=== PATIENT | male | born 1980 | race Caucasian/White ===

== ENCOUNTER 2022-03-26 14:28 | Emergency (ER) | payer OTHER, SELFPAY ==
[2022-03-26 14:45] VITALS: BP 153/82; PULSE 82; RESP 18; TEMP 36.9; O2SAT 100
[2022-03-26] MEDS: PANTOPRAZOLE 40 MG TABLET PO (16:36)
[2022-03-26] MEDS: BELLADONNA ALK/PHENOB ELIX 10 ML, MAG HYDROX/ALUMINUM HYD/SIMETH 30 ML, LIDOCAINE HCL 2... PO (16:37)
--- NOTE | 2022-03-26 16:44 | ED.GENADULT ---
HPI - General Adult General Chief complaint: Skin/Abscess/Foreign Body Stated complaint: swallowing issues Time Seen by Provider: 03/26/22 15:30 History of Present Illness HPI narrative: 41-year-old male with history of possible esophageal stricture with increasing difficulty swallowing presents to the emergency department for concern of a food bolus. Patient states he was eating shrimp earlier and felt that it got stuck. At this time patient is handling his own secretions and is able to swallow without issues. Patient does complain of some esophageal pressure but appears to be in no distress. Related Data Allergies Allergy/AdvReac Type Severity Reaction Status Date / Time codeine Allergy Unknown Muscle Verified 03/26/22 14:41 Spasms Review of Systems Review of Systems: CONSTITUTIONAL: Denies fever, chills, or sweats. EYES: Denies visual changes, redness, or discharge. ENT: Denies rhinorrhea, congestion, sore throat, or otalgia. CARDIOVASCULAR: Denies chest pain, palpitations, or edema. RESPIRATORY: Denies cough or dyspnea. GASTROINTESTINAL: See HPI GENITOURINARY: Denies dysuria or hematuria. SKIN: Denies rash or itching. MUSCULOSKELETAL: Denies back pain, joint pain, or myalgia. NEUROLOGIC: Denies headache, numbness, or weakness. [facility] Past Medical History Medical History Encounter for monitoring testosterone replacement therapy H/O herpes labialis Hypertension Lipoma Surgical History Surgical History H/O knee surgery ACL/knee reconstruction- Right 1995 ACL/knee reconstruction- Left 2000 History of ankle surgery Left: 1997 History of repair of ACL Family History Family History Mother Asthma Diabetes mellitus Father Family history of bipolar disorder Alcoholism Depression Grandparent Hypertension Depression Skin cancer Social History Social History Smoking status: Never smoker Second hand tobacco smoke exposure: No Alcohol intake: current Alcohol use details: through Wednesday. Substance use: never Substance use type: does not use Gender identity (if verbalized by the patient): Male Exam Narrative: APPEARANCE: Well appearing, no pain, no distress, well-nourished. HEAD: normocephalic, atraumatic. EYES: PERRLA/EOMI, conjunctivae clear. NOSE: Normal no drainage THROAT: Pharynx clear, no exudate. NECK: Supple. No adenopathy, no masses. RESPIRATORY: Airway patent, respirations nonlabored. Clear to auscultation bilaterally, no rales, rhonchi, wheezing. CARDIOVASCULAR: Regular rate and rhythm without murmurs rubs or gallops. ABDOMINAL: Soft, nontender, nondistended, normal bowel sounds MUSCULOSKELETAL: Moves all extremities. Strength/ROM intact, No edema, No calf tenderness. NEURO: Alert. Cranial nerves II through XII intact. Grossly intact SKIN: Warm, dry. Normal Color Course Course Emergency Course: Patient was able to drink a glass of water without issue. case was discussed with Dr. Dagoberto Bonilla and GI was comfortable with the plan for discharge and close follow-up. Patient will be started on a PPI and was recommended to follow a soft or clear diet. Patient was updated on the plan for follow-up. All questions and concerns were addressed. Patient was well-appearing and handling his secretions at time of discharge. Vital Signs Vital signs: Vital Signs Temperature 98.4 F 03/26/22 14:45 Pulse Rate 82 03/26/22 14:45 Respiratory Rate 18 03/26/22 14:45 Blood Pressure 153/82 H 03/26/22 14:45 Pulse Oximetry 100 03/26/22 14:45 Temperature 98.4 F 03/26/22 14:45 Pulse Rate 82 03/26/22 14:45 Respiratory Rate 18 03/26/22 14:45 Blood Pressure 153/82 H 03/26/22 14:45 Pulse Oximetry 100 03/26/22 14:45 Medical De
--- NOTE | 2022-03-26 17:13 | PC.NURSE ---
Reports decrease in symptoms with GI cocktail.
== END 2022-03-26 17:15 | disposition home or self-care (01) ==
PROVIDERS: Emergency Provider Emergency Medicine; PCP Internal Medicine
DX: K22.9 Disease of esophagus, unspecified (principal); I10 Essential (primary) hypertension
CPT/HCPCS: 99283; A9270

== ENCOUNTER 2022-04-06 00:22 | Day surgery (SDC) | payer OTHER, SELFPAY ==
[2022-04-02 08:23] VITALS: BMI 28.5
[2022-04-06 08:38] VITALS: BP 151/64; PULSE 92; RESP 18; TEMP 36.6; O2SAT 100; BMI 27.9
[2022-04-06] MEDS: LACTATED RINGERS 1,000 ML 150 ML IV CONT (08:58)
--- NOTE | 2022-04-06 09:11 | WPDHPUPDATE1 ---
History and Physical Update Update Date/Time: 04/06/22 09:11 History and Physical has been reviewed, including an updated exam of the patient. There are NO changes in the patient's condition. Risks, benefits, and alternatives have been discussed and questions answered. Patient agrees to proceed with procedure.
--- NOTE | 2022-04-06 09:13 | WPDANESEPPF ---
Anes - Initial Pre Proc Eval Procedure: Operation Date: 04/06/22 09:30 Proposed Procedures p Esophagogastroduodenoscopy - Dieudonne Brooke MD Date/Time: 04/06/22 09:13 Surgeon: Dieudonne Brooke MD Pre Op Diagnosis: dysphagia Patient Data Age: 41 Gender: M Height: 1.75 m Weight: 85.8 kg Last Vital Signs Temp 97.8 F 04/06/22 08:38 Pulse 92 04/06/22 08:38 Resp 18 04/06/22 08:38 BP 151/64 H 04/06/22 08:38 Pulse Ox 100 04/06/22 08:38 O2 Del Method Room Air 04/06/22 08:38 Allergies Allergy/AdvReac Type Severity Reaction Status Date / Time codeine Allergy Unknown Muscle Verified 04/06/22 08:44 Spasms Home Medications Medication Instructions Recorded Confirmed Type testosterone cypionate 200 mg/mL 150 mg (0.75 mL) IM WEEKLY #10 mL 09/02/21 04/06/22 Rx intramuscular oil tadalafil 10 mg tablet (Cialis) 10 mg PO DAILY PRN sexual activity 11/21/21 04/06/22 Rx #30 tabs needle (disp) 18 G 18 gauge x 1 #100 ea 02/06/22 04/06/22 Rx 1/2 (BD Regular Bevel Chrisney) syringe with needle 3 mL 21 gauge #100 ea 02/12/22 04/06/22 Rx x 1 1/2 (BD Luer-Nory Syringe) valacyclovir 500 mg tablet See Rx Instructions .Route 03/20/22 04/06/22 Rx .COMPLEX #90 tabs omeprazole 20 mg capsule,delayed 20 mg PO DAILY 1 month #30 caps 03/30/22 04/06/22 Rx release Patient hx anesthesia problems: none Family hx anesthesia problems: none Results Review: All pre-operative results and documents have been reviewed as part of the pre-operative evaluation. [facility] Past Medical History Medical History Encounter for monitoring testosterone replacement therapy H/O herpes labialis Hypertension Lipoma Surgical History Surgical History H/O knee surgery ACL/knee reconstruction- Right 1995 ACL/knee reconstruction- Left 2000 History of ankle surgery Left: 1997 History of repair of ACL Family History Family History Mother Asthma Diabetes mellitus Father Family history of bipolar disorder Alcoholism Depression Grandparent Hypertension Depression Skin cancer Social History Social History Smoking status: Never smoker Second hand tobacco smoke exposure: No Alcohol intake: current Drinks per week: 8 Alcohol use details: through Wednesday. Substance use: current Substance use type: marijuana Living arrangements: with family Gender identity (if verbalized by the patient): Male Spiritual care concerns: No Anes - Eval Final PreProcedure Day of Procedure 04/06/22 09:13 Patient weight: normal Heart: irregular rhythm Lungs: clear to auscultation Airway: Mallampati scale class II Neurological: alert and oriented Last oral intake: >/= 8 hours ASA classification: II Emergent: no Anesthetic plan: proceed Results Review: All pre-operative results and documents have been reviewed as part of the pre-operative evaluation. Informed Consent: The patient's anesthetic plan and its attendant risks and benefits were discussed with the patient/family/POA. Questions were solicited and answers provided to the satisfaction of the patient/family/POA.
[2022-04-06 09:29] VITALS: BP 134/79; PULSE 86; RESP 18; O2SAT 98
[2022-04-06 09:39] VITALS: BP 135/95; PULSE 77; RESP 18; O2SAT 98
[2022-04-06 09:49] VITALS: BP 143/89; PULSE 81; RESP 18; O2SAT 98
== END 2022-04-06 10:00 | disposition home or self-care (01) ==
PROVIDERS: PCP Internal Medicine; Visit Provider Internal Medicine Gastroenterology
PROC: 0DJ08ZZ Inspection of Upper Intestinal Tract, Via Natural or Artificial Opening Endoscopic (ICD-10-PCS; CPT 43235; principal; 2022-04-06 09:30)
DX: R13.19 Other dysphagia (principal); K21.00 Gastro-esophageal reflux disease with esophagitis, without bleeding; K29.70 Gastritis, unspecified, without bleeding; I10 Essential (primary) hypertension; F12.90 Cannabis use, unspecified, uncomplicated
CPT/HCPCS: 43239; 88305; J2704; J7120

== ENCOUNTER 2022-12-18 13:04 | Outpatient (CLI) | payer BC, SELFPAY ==
--- NOTE | ~2022-12-18 | XR_ITS ---
Right ankle Technique: AP, oblique, and lateral views were obtained. Clinical History: Pain Findings: No acute fracture or dislocation is seen. Osseous alignment is anatomic. There is mild dege nerative change at the tibiotalar joint, with anterior spurring of the distal tibial and dorsal spurr ing of the talar neck. Soft tissues are otherwise unremarkable. Impression: Mild degenerative change of the tibiotalar joint, as detailed above. No fracture or dislocation. Reviewed, dictated and finalized at location M. Impression: Mild degenerative change of the tibiotalar joint, as detailed above. No fracture or dislocation.
== END 2022-12-18 13:05 | disposition home or self-care (01) ==
PROVIDERS: PCP Internal Medicine; Visit Provider Clinical Nurse Specialist
DX: M25.571 Pain in right ankle and joints of right foot (principal)
CPT/HCPCS: 73610

== ENCOUNTER 2023-12-02 09:47 | Outpatient (CLI) | payer BC, SELFPAY ==
--- NOTE | ~2023-12-02 | XR_ITS ---
Left Knee Technique: AP, lateral, and sunrise views were obtained. Clinical History: Swelling Findings: No fracture or dislocation is seen. Osseous alignment is anatomic. Patient is status post ACL reconstruction. There is moderate tricompartmental degenerative change Soft tissues are unremarka ble. No joint effusion is seen. Impression: Moderate tricompartmental degenerative change. Status post ACL reconstruction. Reviewed, dictated and finalized at location . Impression: Moderate tricompartmental degenerative change. Status post ACL reconstruction.
== END 2023-12-02 09:48 ==
PROVIDERS: PCP Internal Medicine; Visit Provider Internal Medicine
DX: M17.12 Unilateral primary osteoarthritis, left knee (principal); Z98.890 Other specified postprocedural states
CPT/HCPCS: 73564

== ENCOUNTER 2024-04-18 01:03 | Day surgery (SDC) | payer BC, SELFPAY ==
[2024-03-30 09:09] VITALS: BMI 28.8
[2024-04-18 08:48] VITALS: BP 133/86; PULSE 61; RESP 16; TEMP 36.5; O2SAT 100; BMI 28.4
[2024-04-18] MEDS: LACTATED RINGERS 1,000 ML 30 ML IV CONT (09:13)
--- NOTE | 2024-04-18 09:32 | WPDANESEPPF ---
Anes - Initial Pre Proc Eval Procedure: Operation Date: 04/18/24 10:00 Proposed Procedures p Screening Colonoscopy - Blaise Chanel DO Date/Time: 04/18/24 09:32 Surgeon: Blaise Chanel DO Pre Op Diagnosis: Screening for malignant neoplasm of colon Patient Data Age: 43 Gender: M Height: 1.75 m Weight: 87.3 kg Last Vital Signs Temp 97.7 F 04/18/24 08:48 Pulse 61 04/18/24 08:48 Resp 16 04/18/24 08:48 BP 133/86 04/18/24 08:48 Pulse Ox 100 04/18/24 08:48 O2 Del Method Room Air 04/18/24 08:48 Allergies Allergy/AdvReac Type Severity Reaction Status Date / Time codeine Allergy Unknown Muscle Verified 04/18/24 08:51 Spasms Home Medications Medication Instructions Recorded Confirmed Type needle (disp) 18 G 18 gauge x 1 #100 ea 02/06/22 04/18/24 Rx 1/2 (BD Regular Bevel Gowrie) syringe with needle 3 mL 21 gauge #100 ea 10/01/22 04/18/24 Rx x 1 1/2 (BD Luer-Nory Syringe) valacyclovir 500 mg tablet See Rx Instructions .Route 11/25/23 04/18/24 Rx .COMPLEX #90 tabs testosterone cypionate 200 mg/mL 120 mg (0.6 mL) IM WEEKLY #10 mL 01/10/24 04/18/24 Rx intramuscular oil tadalafil 10 mg tablet (Cialis) 10 mg PO DAILY PRN sexual activity 04/14/24 04/18/24 Rx #30 tabs Patient hx anesthesia problems: none Family hx anesthesia problems: none Results Review: All pre-operative results and documents have been reviewed as part of the pre-operative evaluation. [facility] Past Medical History Medical History Dysphagia Encounter for monitoring testosterone replacement therapy Esophagitis H/O herpes labialis Hypertension Lipoma Male hypogonadism Surgical History Surgical History H/O knee surgery ACL/knee reconstruction- Right 1995 ACL/knee reconstruction- Left 2000 History of ankle surgery Left: 1997 History of repair of ACL Family History Family History Mother Asthma Diabetes mellitus Father Family history of bipolar disorder Alcoholism Depression Grandparent Hypertension Depression Skin cancer Social History Social History Smoking status: Never smoker Second hand tobacco smoke exposure: No Alcohol intake: current Drinks per week: 6 Alcohol use details: through Wednesday. Substance use: current Substance use type: does not use Do You Feel Safe in your Home?: Yes Lack of Transportation: No Lack of Food: Never True Current Housing: I Have Housing Concerned About Future Housing: No Difficulty Paying Gas/Electric Bills: No Difficulty Paying for Meds: No Currently Unemployed: No Education: Bachelor's Degree Difficulty w/ Childcare or Family Care: No Living arrangements: with family Occupation/Education: occupation Gender identity (if verbalized by the patient): Male Spiritual care concerns: No Anes - Eval Final PreProcedure Day of Procedure 04/18/24 09:32 Patient weight: normal Heart: regular rate and rhythm Lungs: clear to auscultation Airway: Mallampati scale class II Neurological: alert and oriented Last oral intake: >/= 8 hours ASA classification: I Emergent: no Anesthetic plan: proceed Anesthesia type and monitoring: general GIVS and standard monitoring Results Review: All pre-operative results and documents have been reviewed as part of the pre-operative evaluation. Pt very active w wts, cardio, golf, no cp or sob. Informed Consent: The patient's anesthetic plan and its attendant risks and benefits were discussed with the patient/family/POA. Questions were solicited and answers provided to the satisfaction of the patient/family/POA.
--- NOTE | 2024-04-18 10:04 | PM.IMHP ---
H&P: HPI History of Present Illness Date/Time: 04/18/24 10:04 Chief Complaint: screening for colorectal cancer Narrative: this is a 43-year-old man who presents for his 1st colonoscopy. He denies any hematochezia or melena. He denies any family history of colon cancer. Review of Systems Review of Systems: All systems reviewed & are unremarkable except as noted in HPI and below Constitutional: Constitutional: Denies chills, Denies fever(s), Denies headache(s) and Denies weight loss Eyes: Eyes: Denies change in vision ENT: Denies dizziness, Denies headache(s), Denies neck mass and Denies throat swelling Cardiovascular: Cardiovascular: Denies chest pain, Denies lightheadedness and Denies dyspnea Respiratory: Respiratory: Denies cough, Denies dyspnea and Denies wheezing Gastrointestinal: Gastrointestinal: Denies abdominal pain, Denies change in bowel habits, Denies nausea and Denies vomiting Genitourinary: Genitourinary: Denies hematuria and Denies dysuria Musculoskeletal: Musculoskeletal: Reports as per HPI Integumentary/Breasts: Skin/Breast: Reports as per HPI Neurologic: Denies dizziness and Denies headache(s) Allergic/Immunologic: Allergic/Immunologic: Denies throat swelling and Denies wheezing PMFSH Past Medical History Medical History Dysphagia Encounter for monitoring testosterone replacement therapy Esophagitis H/O herpes labialis Hypertension Lipoma Male hypogonadism Surgical History Surgical History H/O knee surgery ACL/knee reconstruction- Right 1995 ACL/knee reconstruction- Left 2000 History of ankle surgery Left: 1997 History of repair of ACL Family History Family History Mother Asthma Diabetes mellitus Father Family history of bipolar disorder Alcoholism Depression Grandparent Hypertension Depression Skin cancer Social History Social History Smoking status: Never smoker Second hand tobacco smoke exposure: No Alcohol intake: current Drinks per week: 6 Alcohol use details: through Wednesday. Substance use: current Substance use type: does not use Do You Feel Safe in your Home?: Yes Lack of Transportation: No Lack of Food: Never True Current Housing: I Have Housing Concerned About Future Housing: No Difficulty Paying Gas/Electric Bills: No Difficulty Paying for Meds: No Currently Unemployed: No Education: Bachelor's Degree Difficulty w/ Childcare or Family Care: No Living arrangements: with family Occupation/Education: occupation Gender identity (if verbalized by the patient): Male Spiritual care concerns: No Meds Home Medications and Allergies Home Medications Medication Instructions Recorded Confirmed Type needle (disp) 18 G 18 gauge x 1 #100 ea 02/06/22 04/18/24 Rx 1/2 (BD Regular Bevel Epes) syringe with needle 3 mL 21 gauge #100 ea 10/01/22 04/18/24 Rx x 1 1/2 (BD Luer-Nory Syringe) valacyclovir 500 mg tablet See Rx Instructions .Route 11/25/23 04/18/24 Rx .COMPLEX #90 tabs testosterone cypionate 200 mg/mL 120 mg (0.6 mL) IM WEEKLY #10 mL 01/10/24 04/18/24 Rx intramuscular oil tadalafil 10 mg tablet (Cialis) 10 mg PO DAILY PRN sexual activity 04/14/24 04/18/24 Rx #30 tabs Allergies Allergy/AdvReac Type Severity Reaction Status Date / Time codeine Allergy Unknown Muscle Verified 04/18/24 08:51 Spasms Vital Signs Vital Signs - 24 hr 04/18/24 08:48 Temperature 97.7 F Pulse Rate 61 Respiratory Rate 16 Blood Pressure 133/86 Pulse Oximetry 100 Oxygen Delivery Room Air Exam Const: General: no acute distress and alert Orientation/consciousness: patient oriented x3 HENMT: Head: normocephalic and atraumatic Ears: hea
[2024-04-18 10:29] VITALS: BP 112/73; PULSE 73; RESP 21; O2SAT 98
[2024-04-18 10:39] VITALS: BP 112/73; PULSE 73; RESP 21; O2SAT 98
== END 2024-04-18 11:00 | disposition home or self-care (01) ==
PROVIDERS: PCP Internal Medicine; Visit Provider Surgery
PROC: 0DJD8ZZ Inspection of Lower Intestinal Tract, Via Natural or Artificial Opening Endoscopic (ICD-10-PCS; CPT 45378; principal; 2024-04-18 10:00)
DX: Z12.11 Encounter for screening for malignant neoplasm of colon (principal); I10 Essential (primary) hypertension; E29.1 Testicular hypofunction; Z98.890 Other specified postprocedural states; Z86.018 Personal history of other benign neoplasm; Z84.0 Family history of diseases of the skin and subcutaneous tissue
CPT/HCPCS: 45378; J2003; J2704; J7120

== ENCOUNTER 2024-10-09 13:43 | Outpatient (CLI) | payer BC, SELFPAY ==
--- NOTE | ~2024-10-09 | MR_ITS ---
EXAMINATION: MR knee LT wo/w con DATE: 10/09/2024 14:23 INDICATION: Painful lump at the medial left knee. TECHNIQUE: Magnetic resonance imaging (MRI) of the left knee was performed without intravenous contra st. Sequences included coronal PD-weighted FSE, coronal PD-weighted FS FSE, sagittal T2-weighted FSE , sagittal PD-weighted FS FSE, axial PD weighted FS FSE, axial T1-weighted FS FSE and axial, sagittal and coronal T1-weighted FS FSE. COMPARISON: Left knee radiographs dated 12/02/2023 FINDINGS: Medial compartment: There is medial extrusion of the medial meniscal body complex medial meniscal tear with longitudinal horizontal tear plane at the anterior horn and with macerated appearance of the meniscal body and pos terior horn. Severe osteoarthritis in the medial compartment with full-thickness cartilage loss with remodeling of the articular cortex at the posterior medial aspect of the medial tibial plateau and wi th subarticular sclerosis and minimal edema-like signal change along significant portions of the ante rior to central weightbearing medial femoral condyle. Moderate size marginal osteophytes are present. Lateral compartment: Lateral meniscus is normal. Mild partial-thickness cartilage loss with additional moderate size rafa nal osteophytes along the lateral margin of the lateral tibial plateau and weightbearing lateral femo ral condyle. Patellofemoral compartment: Mild chondral surface irregularity along the inferior margin of the patella. Additional partial-thick ness trochlear chondral ulceration and fissuring without degenerative subchondral changes centered al ayanna the mid to inferior aspect of the trochlear groove. Large marginal osteophytes along the medial l ateral trochlea and moderate-sized patellofemoral marginal osteophytes. Ligaments and tendons: Thickening and increased signal of the posterior cruciate ligament consistent with at least partial t ear which includes a longitudinal split tear extending along the axis of the ligament fibers. There i s been prior anterior cruciate ligament reconstruction. The graft appears to remain intact and taut b etween the femoral and tibial interference screws. There is a small focus of susceptibility artifact along the small aspect of the otherwise normal-appearing medial collateral ligament. The fibular juan luis ateral ligament complex is normal. Mild distal quadriceps tendinopathy. There is mild tendinopathy of the patellar tendon with with attenuation extending craniocaudally at the central aspect of the tend on likely representing the ACL graft harvest site. The visualized medial and lateral hamstring tendon s as well as the iliotibial band are normal. Fluid: Physiologic amount of fluid in the joint space. There are couple loose osteochondral bodies at the po pliteal recess and at the recess is long side the femoral insertions of the gastrocnemius tendons. La rge ganglion cyst measuring 5.5 cm craniocaudally and 4.5 x 3.1 cm in maximal transaxial dimensions a rising from the posterior medial aspect of the knee. This accounts for the reported painful mass of concern immediately underlying the marker marker. Additional small to moderate-sized ganglion cyst tr acking proximal to distally along the distal semimembranosus tendon. There is mild synovial enhanceme nt at the periphery of the joint space as well as at the periphery of the Cisneros's cyst and semimembra nosus ganglion cyst. Osseous/other: Normal marrow signal. No fracture or pathologic marrow replacing process. No other abnormally enhanci ng lesions identified. IMPRESSION: 1. A couple multilobulated ganglion cysts at the posterior medial aspect of the knee, the larger and more superficial measuring 5.5 x 4.5 x 3.1 cm and underlying the marker indicating the palpable abnor mality of concern. Line 2. 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 3. Mild osteoarthritis the lateral and patellofemoral compartments. 4. Anterior cruciate ligament reconstruction intact appearing likely patellar tendon autograft. At le ast partial tear of the posterior cruciate ligament including a longitudinal split tear Reviewed, dictated and finalized at location B. IMPRESSION: 1. A couple multilobulated ganglion cysts at the posterior medial aspect of the knee, the larger and more superficial measuring 5.5 x 4.5 x 3.1 cm and underly ing the marker indicating the palpable abnormality of concern. Line 2. Complex medial meniscal tear with severe osteoarthritis and extensive high-g rade chondromalacia in the medial compartment. 3. Mild osteoarthritis the lateral and patellofemoral compartments. 4. Anterior cruciate ligament reconstruction intact appearing likely patellar t endon autograft. At least partial tear of the posterior cruciate ligament inclu ding a longitudinal split tear
== END 2024-10-09 13:44 | disposition home or self-care (01) ==
LOC: MICIMG 13:44
PROVIDERS: PCP Internal Medicine; Visit Provider Internal Medicine
DX: M67.462 Ganglion, left knee (principal); S83.232A Complex tear of medial meniscus, current injury, left knee, initial encounter; M17.12 Unilateral primary osteoarthritis, left knee; M94.262 Chondromalacia, left knee; S83.522A Sprain of posterior cruciate ligament of left knee, initial encounter; X58.XXXA Exposure to other specified factors, initial encounter
CPT/HCPCS: 73723; A9579